=== PATIENT | male | born 1965 | race Caucasian/White ===

== ENCOUNTER → 2023-07-27 | Outpatient (CLI) | payer BC, SELFPAY ==
--- NOTE | 2023-07-27 08:30 | RAD_ITS ---
STUDY: X-RAY - ABDOMEN/PELVIS REASON FOR EXAM: Male, 57 years old. Renal calculi. TECHNIQUE: Single AP view of the abdomen / pelvis. COMPARISON: None. FINDINGS: Normal visualized lung bases. Normal bowel gas pattern with air seen to the rectosigmoid. No disproportionate dilatation of [1 cm in diameter calcification projected over the lower pole kidney and 2 calcifications projected over the lower pole of the left kidney, one 1 mm in diameter and the other 5 mm in diameter. Normal soft tissue structures. Normal visualized osseous structures. RAD/Abdomen Single View IMPRESSION: Bilateral renal calculi as described. Electronically Signed: Jese Anna MD at 13:51 EDT ,
[2023-08-17 11:59] LABS: Source Not Provided
== END | disposition home or self-care (01) ==
PROVIDERS: PCP Nurse Practitioner; Referring Provider Urology; Visit Provider Urology
DX: Z87.442 Personal history of urinary calculi (principal); N20.0 Calculus of kidney
CPT/HCPCS: 74018; 82360